=== PATIENT | male | born 1995 | race Caucasian/White ===

== ENCOUNTER 2017-03-05 22:23 | Emergency (ER) | payer OTHER ==
[2017-03-05] MEDS ORDERED: fentaNYL 100 MCG/2 ML INJ ONE (22:33)
[2017-03-05] MEDS ORDERED: ONDANSETRON 4 MG/2 ML VIAL ONE (22:35)
[2017-03-05] MEDS ORDERED: fentaNYL 100 MCG/2 ML INJ IVP ONE (22:45)
[2017-03-05] MEDS ORDERED: PROPOFOL 200 MG/20 ML VIAL ONE (22:47)
[2017-03-05] MEDS ORDERED: NS 1,000 ML IV ONE (23:00)
[2017-03-05] MEDS ORDERED: PROPOFOL 200 MG/20 ML VIAL IVP ONE (23:00)
[2017-03-05 23:14] VITALS: RESP 16
[2017-03-05] MEDS ORDERED: HYDROCOD/APAP 5/325 PREPACK#6 BTL TAKEHOME ONE (23:28)
--- NOTE | 2017-03-05 23:29 | EDPHY ---
H & P Stated Complaint: left shoulder dislocation Time Seen by Provider: 03/05/17 22:28 HPI/ROS: CHIEF COMPLAINT: left shoulder dislocation HISTORY OF PRESENT ILLNESS: 21-year-old male presents emergency department reporting a left shoulder dislocation. Patient states he was reaching his arm over his head to pick something up when his shoulder dislocated. He reports multiple previous shoulder dislocations. He had a shoulder labral repair 5 years ago and has had 5 dislocations since this time. Patient is right-hand- dominant. He denies numbness or tingling in his arm. REVIEW OF SYSTEMS: A comprehensive 10 point review of systems is otherwise negative aside from elements mentioned in the history of present illness. Source: Patient Exam Limitations: No limitations - Personal History Current Tetanus/Diphtheria Vaccine: Yes Current Tetanus Diphtheria and Acellular Pertussis (TDAP): Yes Tetanus Vaccine Date: 2016 - Medical/Surgical History Hx Asthma: No Hx Chronic Respiratory Disease: No Hx Diabetes: No Hx Cardiac Disease: No Hx Renal Disease: No Hx Cirrhosis: No Hx Alcoholism: No Hx HIV/AIDS: No Hx Splenectomy or Spleen Trauma: No Other PMH: shoulder surgery - Social History Smoking Status: Never smoked - Physical Exam Exam: Physical Exam Gen: Alert and Oriented, NAD HEENT: PERRL, moist mucous membranes NECK: no meningismus CV: regular rate and regular rhythm PULM: CTAB, no wheezes NEURO: Neurologically grossly intact EXTREMITIES: Left shoulder with obvious deformity, tenderness to palpation, decreased range of motion, 2+ radial pulses, sensation intact to light touch, cap refill less than 2 seconds SKIN: no rash or break in skin on exposed skin PSYCH: answers questions appropriately. Constitutional: Initial Vital Signs Temperature (C) 36.4 C 03/05/17 22:24 Heart Rate 108 H 03/05/17 22:24 Respiratory Rate 20 03/05/17 22:24 Blood Pressure 122/60 H 03/05/17 22:24 O2 Sat (%) 95 03/05/17 22:24 O2 Delivery Mode [Post Room Air Procedure 2nd] O2 Delivery Mode [Post Non-Rebreather Mask Procedure 1st] O2 Delivery Mode [Procedural Non-Rebreather Mask 2nd] O2 Delivery Mode [Procedural Non-Rebreather Mask 1st] O2 Delivery Mode [.Immediate Non-Rebreather Mask Pre-Procedure] O2 Delivery Mode Room Air O2 (L/minute) [Post Procedure 15 1st] O2 (L/minute) [Procedural 2nd] 15 O2 (L/minute) [Procedural 1st] 15 O2 (L/minute) [.Immediate Pre- 15 Procedure] Allergies/Adverse Reactions: No Known Allergies Allergy (Unverified 03/05/17 22:26) Home Medications: Medication Instructions Recorded NK [No Known Home Meds] 03/05/17 Medical Decision Making - Diagnostics Imaging Results: Imaging Impressions Shoulder X-Ray 03/05/17 22:55 Impression: Negative for fracture. Anatomic alignment following reduction. Imaging: I viewed and interpreted images myself Procedures: Procedure: Dislocation reduction. Indication: Dislocation of the left shoulder. Risks, benefits, alternatives discussed with the patient. Consent was obtained. The patient required procedural sedation. This was performed by Dr. Piper who is at bedside for the procedure. The shoulder was reduced using a combination of the Fox technique and scapular manipulation without complications. The patient has a normal neurovascular exam distal to the injury post reduction. Patient tolerated the procedure well and is significantly more comfortable. Post reduction x-ray demonstrates reduction of the joint to the anatomic position. The procedure was performed by myself. ED Course/Re-evaluation: 21-year-old male presents an obvious shoulder dislocation. Attempt was made to reduce this without procedural sedation though the patient was unable to tolerate this due to the pain. IV was established, patient was given 100 mcg of fentanyl and reduction was attempted again. Patient did require propofol, Dr. Piper was at bedside doing procedure sedation. Shoulder was reduced without difficulty, patient tolerated this well, he is placed in a sling and discharged home after waking up from sedation. - Data Points Medications Given: Discontinued Medications Fentanyl (Sublimaze) 100 mcg IVP EDNOW ONE Stop: 03/05/17 22:46 Last Admin: 03/05/17 22:35 Dose: 100 mcg Sodium Chloride (Ns) 1,000 mls @ 0 mls/hr IV ONCE ONE PRN Reason: Wide Open Stop: 03/05/17 23:01 Last Admin: 03/05/17 22:30 Dose: 1,000 mls Propofol (Diprivan) 100 mg IVP EDNOW ONE Stop: 03/05/17 23:01 Last Admin: 03/05/17 22:45 Dose: 100 mg Departure - Departure Disposition: Home, Routine, Self-Care Clinical Impression: Recurrent dislocation, left shoulder Condition: Good Instructions: Hydrocodone/Acetaminophen (By mouth), Shoulder Dislocation (ED) Additional Instructions: Wear sling until follow up with orthopedist. Call to schedule this appointment on Wednesday. Take 600 mg of ibuprofen every 8 hours with food for 3-5 days for pain, take [place] for severe pain. Do not lift anything heavier than a glass of water in do not lift your arms over your head. Referrals: Hakan Bernardo MD [Medical Doctor] - As per Instructions
[2017-03-05 23:36] VITALS: BP 121/72; PULSE 70; TEMP 97.9; O2SAT 97
== END 2017-03-05 23:37 | disposition home or self-care (01) ==
PROC: 0RSKXZZ Reposition Left Shoulder Joint, External Approach (ICD-10-PCS; principal; 2017-03-05)
DX: M24.412 Recurrent dislocation, left shoulder (principal); X58.XXXA Exposure to other specified factors, initial encounter
CPT/HCPCS: J2405; J2704; J3010